=== PATIENT | female | born 1990 | race Caucasian/White ===

== ENCOUNTER 2017-03-06 13:51 | Emergency (ER) | payer OTHER ==
[2017-03-06] MEDS ORDERED: NS 0.9% 1000 ML* 1,000 ML IV ONE (14:13)
[2017-03-06 14:27] LABS: Hematocrit 32 % (35-47); Hemoglobin 9.6 g/dl (12.0-16.0); Mean Corpuscular HGB Conc 30 g/dl (31-36); Mean Corpuscular Hemoglobin 21 pg (27-31); Mean Corpuscular Volume 70 fL (80-97); Mean Platelet Volume 8 um3 (7.4-10.4); Red Cell Distribution Width 20 % (10.5-15); White Blood Count 7.5 10^3/ul (3.5-10.8)
[2017-03-06 14:30] LABS: Comments Flag Yes
[2017-03-06 14:31] LABS: Add Diff/Slide Review? Slide Review Added
[2017-03-06 14:44] LABS: ALT 8 U/L (7-52); AST 12 U/L (13-39); Albumin 4.4 g/dL (3.2-5.2); Alkaline Phosphatase 73 U/L (34-104); Amylase 73 U/L (29-103); Anion Gap 6 mmol/L (2-11); BUN/Creatinine Ratio 10.9 (8-20); Blood Urea Nitrogen 7 mg/dL (6-24); C Reactive Protein < 1.00 mg/L (< 5.00); CO2 Carbon Dioxide 28 mmol/L (22-32); Chloride 106 mmol/L (101-111); EGFR African American 146.6 (>60); Globulin 2.6 g/dL (2-4); Glucose 99 mg/dL (70-100); Lipase 108 U/L (11.0-82.0); Potassium 3.7 mmol/L (3.5-5.0); Sodium 140 mmol/L (133-145)
--- NOTE | 2017-03-06 15:06 | RAD ---
HISTORY: Abdominal pain COMPARISONS: None VIEWS: Frontal views of the abdomen. FINDINGS: BOWEL: There is a nonobstructive bowel gas pattern. CALCULI: There are no abnormal calculi. BONES AND SOFT TISSUES: There are no osseous abnormalities. OTHER FINDINGS: The lung bases are clear. There is no subphrenic gas. IMPRESSION: NONOBSTRUCTIVE BOWEL GAS PATTERN
[2017-03-06] MEDS ORDERED: Ondansetron INJ* 2 MG/ML VIAL IV ONE (15:28)
[2017-03-06] MEDS ORDERED: Ondansetron INJ* 2 MG/ML VIAL ONE (15:29)
[2017-03-06] MEDS ORDERED: Ketorolac INJ* 30 MG/ML 1 ML VIAL IV PUSH ONE (15:32)
[2017-03-06] MEDS ORDERED: Ketorolac INJ* 30 MG/ML 1 ML VIAL ONE (15:34)
[2017-03-06 16:59] LABS: Urine Bacteria Absent (Absent); Urine Bilirubin Negative (Negative); Urine Glucose Negative (Negative); Urine Nitrite Negative (Negative)
--- NOTE | 2017-03-06 18:15 | RAD ---
INDICATION: Right lower quadrant pain x1 week COMPARISON: None. TECHNIQUE: Real-time transabdominal and transvaginal ultrasound examination of the female pelvis including grayscale and Doppler color flow imaging. FINDINGS: Uterus: The uterus is normal in size and echogenicity measuring 6.9 x 4.9 x 5.8 cm. The endometrial stripe is smooth and uniform measuring 5 mm in thickness. Ovaries: The right and left ovary measure 3.9 x 1.8 x 2.5 cm and 3.9 x 2.7 x 2.0 cm, respectively. Normal arterial and venous waveforms are identified. Appearance is within normal limits for the patient's age. There is small amount of free fluid in the cul-de-sac. IMPRESSION: Normal pelvic ultrasound for the patient's age.
[2017-03-06] MEDS ORDERED: cefTRIAXone VIAL(*) 250 MG VIAL IM ONE (18:40)
[2017-03-06] MEDS ORDERED: DOXYcycline IV* 100 MG in NS 0.9% 250 ML* 250 ML IVPB ONE (18:40)
[2017-03-06] MEDS ORDERED: Lidocaine 1%* 5 ML VIAL ONE (18:58)
[2017-03-06] MEDS ORDERED: oxyCODONE/Acetamin 5/325 MG* TAB PO ONE (19:11)
[2017-03-06 20:45] VITALS: BP 94/68
--- NOTE | 2017-03-07 07:53 | ED ---
Steve Rowland Alfonso, scribed for Armando Powell MD on 03/06/17 at 1423 . Abdominal Pain/Female - HPI Summary HPI Summary: This patient is a 26 year old F presenting to [facility] with a chief complaint of RLQ abdominal and right flank pain since one week ago. The pain radiates to her back. The patient rates the pain 9/10 in severity. Symptoms aggravated by new IBS medications and alleviated by nothing. Patient reports dysuria, N/V/D, and vaginal discharge. She denies recent abx use. She denies recent travel. She denies recent sick contacts. She reports recent diagnoses of IBS and bilateral kidney stones. PSHx of cholecystectomy and gastric bypass (4 years ago in [place]). - History of Current Complaint Chief Complaint: EDAbdPain Stated Complaint: ABD PAIN Time Seen by Provider: 03/06/17 14:01 Hx Obtained From: Patient Hx Last Menstrual Period: now Onset/Duration: Sudden Onset, Lasting Weeks - 1, Still Present Timing: Constant Severity Initially: Severe Severity Currently: Severe Pain Intensity: 9 Pain Scale Used: 0-10 Numeric Location: Discrete At: RLQ, Flank - R Radiates: Yes Radiates to: Back Aggravating Factor(s): Other: - New medications (for IBS) Alleviating Factor(s): Nothing Associated Signs and Symptoms: Positive: Other: - Patient reports dysuria, N/V/D , and vaginal discharge. Allergies/Adverse Reactions: Allergies Allergy/AdvReac Type Severity Reaction Status Date / Time Morphine Allergy ITCHINESS Verified 02/12/15 14:27 Home Medications: Home Medications Acetaminophen TAB* [Tylenol TAB*] 650 mg PO Q4H PRN 03/06/17 [History Confirmed 03/06/17] Dicyclomine CAP* [Bentyl CAP*] 10 mg PO TID PRN 03/06/17 [History Confirmed 03/15] Omeprazole CAP* [Prilosec CAP* 20 MG] 40 mg PO DAILY 03/06/17 [History Confirmed 03/06/17] Ondansetron TAB* [Zofran 4 MG Tab*] 4 mg PO TID PRN 03/06/17 [History Confirmed 03/06/17] Sertraline* [Zoloft*] 25 mg PO DAILY 03/06/17 [History Confirmed 03/06/17] PMH/Surg Hx/FS Hx/Imm Hx Endocrine/Hematology History: Denies: Hx Diabetes, Hx Thyroid Disease Respiratory History: Reports: Hx Asthma - PRN INHALER FOR History: Reports: Hx Kidney Infection - HX OF - NONE RECENTLY-LAST 08/2013, Hx Kidney Stones - 08/2013 Sensory History: Denies: Hx Contacts or Glasses, Hx Hearing Aid Opthamlomology History: Denies: Hx Contacts or Glasses Psychiatric History: Reports: Hx Anxiety - HX OF IN THE PAST- NO MEDICATION FOR AT THIS TIME - Surgical History Surgery Procedure, Year, and Place: gastric bypass 01/20/2013, right ganglion cyst 11/2014. GALLBLADDER REMOVED AT AGE 18. INFECTION IN FOOT -HAD DRAIN FOR- AT AGE 10 OR 11. TONSILLECTOMY Hx Anesthesia Reactions: No Infectious Disease History: No Infectious Disease History: Denies: Hx Clostridium Difficile, Hx Hepatitis, Hx Human Immunodeficiency Virus (HIV), Hx of Known/Suspected MRSA, Hx Shingles, Hx Tuberculosis, Hx Known/ Suspected VRE, Hx Known/Suspected VRSA, History Other Infectious Disease, Traveled Outside the [place] in Last 30 Days - Family History Known Family History: Positive: Cardiac Disease, Other - Renal Calculi - Social History Alcohol Use: None Substance Use Type: Reports: None Smoking Status (MU): Never Smoked Tobacco Review of Systems Positive: Abdominal Pain - RLQ and right flank, Vomiting, Diarrhea, Nausea Positive: dysuria, other - Positive vaginal discharge All Other Systems Reviewed And Are Negative: Yes Physical Exam - Summary Physical Exam Summary: VITAL SIGNS: Reviewed. GENERAL: Patient is a well-developed and nourished female who is lying comfortable in the stretcher. Patient is not in any acute respiratory distress. HEAD AND FACE: Normocephalic and atraumatic. EYES: PERRLA, EOMI x 2, No injected conjunctiva. EARS: Hearing grossly intact. Ear canals and tympanic membranes are WNL. MOUTH: Oropharynx within normal limits. NECK: Supple, trachea is midline, no adenopathy, no JVD. CHEST: Symmetric, no tenderness at palpation LUNGS: Clear to auscultation bilaterally. No wheezing or crackles. CVS: RRR, S1 and S2 present, no murmurs or gallops appreciated. ABDOMEN: Soft, non-tender. No signs of distention. Positive bowel sounds. No rebound no guarding, and no masses palpated. No abdominal bruit or pulsations. EXTREMITIES: FROM in all major joints, no edema, no cyanosis or clubbing. NEURO: Alert and oriented x 3. No acute neurological deficits. Speech is normal. SKIN: Dry and warm Triage Information Reviewed: Yes Vital Signs On Initial Exam: Initial Vitals Temp Pulse Resp BP Pulse Ox 97.7 F 83 18 113/62 100 03/06/17 13:53 03/06/17 13:53 03/06/17 13:53 03/06/17 13:53 03/06/17 13:53 Vital Signs Reviewed: Yes - Brittney Coma Scale Coma Scale Total: 15 Diagnostics - Vital Signs Vital Signs Temp Pulse Resp BP Pulse Ox 03/06/17 14:04 98.2 F 92 20 127/77 100 03/06/17 13:53 97.7 F 83 18 113/62 100 - Laboratory Lab Results: Lab Results 03/06/17 03/06/17 03/06/17 Range/Units 14:16 14:16 14:16 WBC 7.5 (3.5-10.8) 10^3/ul RBC 4.60 (4.0-5.4) 10^6/ul Hgb 9.6 L (12.0-16.0) g/dl Hct 32 L (35-47) % MCV 70 L (80-97) fL MCH 21 L (27-31) pg MCHC 30 L (31-36) g/dl RDW 20 H (10.5-15) % Plt Count 436 (150-450) 10^3/ul MPV 8 (7.4-10.4) um3 Neut % (Auto) 70.7 (38-83) % Lymph % (Auto) 20.1 L (25-47) % Bann[place] % (Auto) 8.5 (1-9) % Eos % (Auto) 0.1 (0-6) % Baso % (Auto) 0.6 (0-2) % Absolute Neuts (auto) 5.3 (1.5-7.7) 10^3/ul Absolute Lymphs (auto) 1.5 (1.0-4.8) 10^3/ul Absolute Monos (auto) 0.6 (0-0.8) 10^3/ul Absolute Eos (auto) 0 (0-0.6) 10^3/ul Absolute Basos (auto) 0 (0-0.2) 10^3/ul Absolute Nucleated RBC 0.01 10^3/ul Nucleated RBC % 0.1 Sodium 140 (133-145) mmol/L Potassium 3.7 (3.5-5.0) mmol/L Chloride 106 (101-111) mmol/L Carbon Dioxide 28 (22-32) mmol/L Anion Gap 6 (2-11) mmol/L BUN 7 (6-24) mg/dL Creatinine 0.64 (0.51-0.95) mg/dL Est GFR ( Amer) 146.6 (>60) Est GFR (Non-Af Amer) 114.0 (>60) BUN/Creatinine Ratio 10.9 (8-20) Glucose 99 (70-100) mg/dL Lactic Acid 0.7 (0.5-2.0) mmol/L Calcium 9.0 (8.6-10.3) mg/dL Total Bilirubin 0.30 (0.2-1.0) mg/dL AST 12 L (13-39) U/L ALT 8 (7-52) U/L Alkaline Phosphatase 73 (34-104) U/L C-Reactive Protein < 1.00 (< 5.00) mg/L Total Protein 7.0 (6.4-8.9) g/dL Albumin 4.4 (3.2-5.2) g/dL Globulin 2.6 (2-4) g/dL Albumin/Globulin Ratio 1.7 (1-3) Amylase 73 (29-103) U/L Lipase 108 H (11.0-82.0) U/L Beta HCG, Quant < 0.60 mIU/mL Urine Color Urine Appearance Urine pH (5-9) Ur Specific Slick (1.010-1.030) Urine Protein (Negative) Urine Ketones (Negative) Urine Blood (Negative) Urine Nitrate (Negative) Urine Bilirubin (Negative) Urine Urobilinogen (Negative) Ur Leukocyte Esterase (Negative) Urine WBC (Auto) (Absent) Urine RBC (Auto) (Absent) Ur Squamous Epith Cells (Absent) Urine Bacteria (Absent) Urine Glucose (Negative) 03/06/17 Range/Units 16:43 WBC (3.5-10.8) 10^3/ul RBC (4.0-5.4) 10^6/ul Hgb (12.0-16.0) g/dl Hct (35-47) % MCV (80-97) fL MCH (27-31) pg MCHC (31-36) g/dl RDW (10.5-15) % Plt Count (150-450) 10^3/ul MPV (7.4-10.4) um3 Neut % (Auto) (38-83) % Lymph % (Auto) (25-47) % Bannock % (Auto) (1-9) % Eos % (Auto) (0-6) % Baso % (Auto) (0-2) % Absolute Neuts (auto) (1.5-7.7) 10^3/ul Absolute Lymphs (auto) (1.0-4.8) 10^3/ul Absolute Monos (auto) (0-0.8) 10^3/ul Absolute Eos (auto) (0-0.6) 10^3/ul Absolute Basos (auto) (0-0.2) 10^3/ul Absolute Nucleated RBC 10^3/ul Nucleated RBC % Sodium (133-145) mmol/L Potassium (3.5-5.0) mmol/L Chloride (101-111) mmol/L Carbon Dioxide (22-32) mmol/L Anion Gap (2-11) mmol/L BUN (6-24) mg/dL Creatinine (0.51-0.95) mg/dL Est GFR ( Amer) (>60) Est GFR (Non-Af Amer) (>60) BUN/Creatinine Ratio (8-20) Glucose (70-100) mg/dL Lactic Acid (0.5-2.0) mmol/L Calcium (8.6-10.3) mg/dL Total Bilirubin (0.2-1.0) mg/dL AST (13-39) U/L ALT (7-52) U/L Alkaline Phosphatase (34-104) U/L C-Reactive Protein (< 5.00) mg/L Total Protein (6.4-8.9) g/dL Albumin (3.2-5.2) g/dL Globulin (2-4) g/dL Albumin/Globulin Ratio (1-3) Amylase (29-103) U/L Lipase (11.0-82.0) U/L Beta HCG, Quant mIU/mL Urine Color Straw Urine Appearance Clear Urine pH 6.0 (5-9) Ur Specific Slick 1.012 (1.010-1.030) Urine Protein Negative (Negative) Urine Ketones Trace H (Negative) Urine Blood Negative (Negative) Urine Nitrate Negative (Negative) Urine Bilirubin Negative (Negative) Urine Urobilinogen Negative (Negative) Ur Leukocyte Esterase Trace H (Negative) Urine WBC (Auto) Trace(0-5/hpf) (Absent) Urine RBC (Auto) Trace(0-2/hpf) (Absent) Ur Squamous Epith Cells Present H (Absent) Urine Bacteria Absent (Absent) Urine Glucose Negative (Negative) Result Diagrams: 03/06/17 14:16 03/06/17 14:16 Lab Statement: Any lab studies that have been ordered have been reviewed, and results considered in the medical decision making process. - Radiology Abdomen X-Ray Radiology Interpretation Completed By: Radiologist - NONOBSTRUCTIVE BOWEL GAS PATTERN - Additional Comments Diagnostic Additional Comments: Transvaginal US reveals, per radiologist, Normal pelvic ultrasound for the patient's age. Re-Evaluation - Re-Evaluation First Eval Re-Evaluation Time: 16:26 Change: Improved Comment: She reports feeling improved but still has some abd pain. Abdominal Pain Fem Course/Dx - Course Course Of Treatment: This patient is a 26 year old F presenting to [facility] with a chief complaint of RLQ abdominal and right flank pain since one week ago. The pain radiates to her back. The patient rates the pain 9/10 in severity. Symptoms aggravated by new IBS medications and alleviated by nothing. Patient reports dysuria, N/V/D, and vaginal discharge. She denies recent abx use. She denies recent travel. She denies recent sick contacts. She reports recent diagnoses of IBS and bilateral kidney stones. PSHx of cholecystectomy and gastric bypass (4 years ago in [place]). In the ED course an IV access was obtained. Patient was placed in a cardiac exercise physiologist. Patient was started with IV fluids. She was given Toradol for pain and Zofran for nausea. Labs within normal limits except for chronic anemia, lipase of 108. UA negative. Abdominal X-ray IMPRESSION: NONOBSTRUCTIVE BOWEL GAS PATTERN . I did not order an abdominal and pelvic CT since she just had a CT in [place] on 02/26/17. Impression: Bilateral nephrolithiasis left more prominent than right. No hydronephrosis or obstructing stone. She was given an oxycodone for pain. Pelvic U/S rto r/o ovarian pathology IMPRESSION: Normal pelvic ultrasound for the patient's age. At this time I performed a pelvic exam. 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 External genitalia: within normal limits. No rashes, lesions or ecchymosis. Speculum exam: vaginal barriga with no lesions, masses, or rashes. Positive white yellow discharge. Positive CMTs. No adnexal masses. All cultures were collected and send to the lab. Patient reports that she is sexually active with more than one person and she uses no protection. She was given Rocephin and Doxycycline. She was recommended to f/ u with PCP for culture results. She understands and agrees. I discussed all the findings and test results with the patient. Patient was instructed to return to the emergency room immediately if any of the symptoms return or worsens. They were explained the possibility of an early abdominal pathology which was not detected at this time despite the physical exam and testing. They understand and agree. Abdominal exam before discharge: Soft, NT. No signs of distention. BS present. No rebound no guarding, and no masses palpated. Patient is alert and oriented and hemodynamically stable. Patient is to follow up with primary care physician in the next 2 to 3 days. Patient agree and understands. - Diagnoses Differential Diagnosis: Positive: Constipation, Irritable Bowel Syndrome, Ovarian Cyst, Pelvic Inflammatory Disease, Urinary Tract Infection Provider Diagnoses: Abdominal pain, STI (sexually transmitted infection) Discharge - Discharge Plan Condition: Stable Disposition: HOME Prescriptions: DOXYcycline CAP(*) [DOXYcycline 100MG CAP(*)] 100 mg PO BID #10 cap Naproxen TAB* [Naprosyn 250 mg TAB*] 500 mg PO Q8H PRN #20 tab PRN Reason: Pain Patient Education Materials: Sexually Transmitted Diseases (ED) Referrals: Edgar VALENCIA,Cristian Huynh [Primary Care Provider] - 3 Days The documentation as recorded by the Steve ann Alfonso accurately reflects the service I personally performed and the decisions made by , Armando Powell MD.
--- NOTE | 2017-03-08 09:43 | PN ---
Progress Note - Progress Note Date of Service: 03/08/17 Note: Patient vaginal culture came back positive for gardnerella and samina. talked with patient and still having symptoms so added fluconazole 150mg once and flagyl 500mg bid x7 days
== END 2017-03-06 20:44 | disposition home or self-care (01) ==
LOC: ED 13:51
DX: R10.31 Right lower quadrant pain (principal); Z11.3 Encounter for screening for infections with a predominantly sexual mode of transmission; R11.2 Nausea with vomiting, unspecified; R19.7 Diarrhea, unspecified; R30.0 Dysuria
CPT/HCPCS: 36415; 74020; 76830; 80053; 81003; 81015; 82150; 83605; 83690; 84702; 85025; 86140; 87086; 87480; 87491; 87510; 87591; 87661; 96374; 96375; 99285; A9270-GY; J0696; J1885; J2405

== ENCOUNTER 2017-03-17 15:01 | Emergency (ER) | payer OTHER ==
--- NOTE | 2017-03-17 17:36 | RAD ---
HISTORY: Right foot injury COMPARISONS: None available at the time of dictation VIEWS: 3, Frontal, lateral, and oblique views of the right foot FINDINGS: BONE DENSITY: Normal. BONES: There is no displaced fracture. JOINTS: There is no arthropathy. ALIGNMENT: There is no dislocation. SOFT TISSUES: Unremarkable. OTHER FINDINGS: None. IMPRESSION: NO ACUTE OSSEOUS INJURY. IF SYMPTOMS PERSIST, RECOMMEND REPEAT IMAGING.
[2017-03-17 17:43] VITALS: BP 103/67
[2017-03-17] MEDS ORDERED: HYDROcodone/ACETAMIN 5-325 MG* 1 TAB PO ONE (18:04)
--- NOTE | 2017-03-17 18:28 | UC ---
Lower Extremity/Ankle HPI - HPI Summary HPI Summary: TWO DAYS AGO SEEN BY [facility], PATIENT REPORTS THAT SHE WAS DIAGNOSED WITH A FRACTURE OF THE RIGHT FOOT. GIVEN [facility] REFERRAL. TODAY DROPPED VACCUUM HUNTING AND FISHING GUIDE ON FOOT. PAIN CONTINUES. - History of Current Complaint Chief Complaint: UCLowerExtremity Stated Complaint: RIGHT FOOT INJURY Time Seen by Provider: 03/17/17 15:32 Hx Obtained From: Patient Hx Last Menstrual Period: 03/03/17 Onset/Duration: Sudden Onset, Lasting Days, Still Present Severity Initially: Severe Severity Currently: Severe Pain Intensity: 9 Pain Scale Used: 0-10 Numeric Aggravating Factor(s): Standing, Ambulation Alleviating Factor(s): Rest, Elevation Able to Bear Weight: No - Risk Factors Gout Risk Factors: Negative DVT Risk Factors: Negative Septic Arthritis Risk Factor: Negative - Allergies/Home Medications Allergies/Adverse Reactions: Allergies Allergy/AdvReac Type Severity Reaction Status Date / Time Ibuprofen Allergy See Comment Verified 03/17/17 15:27 Morphine Allergy ITCHINESS Verified 03/17/17 15:25 PMH/Surg Hx/FS Hx/Imm Hx Previously Healthy: Yes - Surgical History Surgical History: Yes Surgery Procedure, Year, and Place: gastric bypass 01/20/2013, right ganglion cyst 11/2014. GALLBLADDER REMOVED AT AGE 18. INFECTION IN FOOT -HAD DRAIN FOR- AT AGE 10 OR 11. TONSILLECTOMY - Family History Known Family History: Positive: Cardiac Disease, Other - Renal Calculi - Social History Occupation: Unemployed Lives: With Family Alcohol Use: None Substance Use Type: None Smoking Status (MU): Never Smoked Tobacco - Immunization History Most Recent Influenza Vaccination: 2015 Most Recent Tetanus Shot: 2011 Most Recent Pneumonia Vaccination: NONE Review of Systems Constitutional: Negative Skin: Negative Eyes: Negative ENT: Negative Respiratory: Negative Cardiovascular: Negative Gastrointestinal: Negative Genitourinary: Negative Motor: Negative Neurovascular: Negative Musculoskeletal: Arthralgia, Myalgia Neurological: Negative Psychological: Negative All Other Systems Reviewed And Are Negative: Yes Physical Exam Triage Information Reviewed: Yes Appearance: Well-Appearing, No Pain Distress, Well-Nourished Vital Signs: Initial Vital Signs Temp 97.5 F 03/17/17 15:29 Pulse 90 03/17/17 15:29 Resp 18 03/17/17 15:29 BP 91/65 03/17/17 15:29 Pulse Ox 100 03/17/17 15:29 Vital Signs Reviewed: Yes Eye Exam: Normal ENT Exam: Normal ENT: Positive: Normal ENT inspection, TMs normal Dental Exam: Normal Neck exam: Normal Neck: Positive: Supple, Nontender, No Lymphadenopathy Respiratory Exam: Normal Respiratory: Positive: Chest non-tender, Lungs clear, Normal breath sounds, No respiratory distress, No accessory muscle use Cardiovascular Exam: Normal Cardiovascular: Positive: RRR, No Murmur, Pulses Normal, Brisk Capillary Refill Abdominal Exam: Normal Musculoskeletal: Positive: No Edema, Strength Limited @, ROM Limited @, Other: Neurological Exam: Normal Psychological Exam: Normal Psychological: Positive: Normal Response To Family Skin Exam: Normal Lower Extremity Course/Dx - Course Course Of Treatment: NO FRACTURE WAS NOTED ON XRAY. - Differential Dx/Diagnosis Differential Diagnosis/HQI/PQRI: Fracture (Closed), Sprain, Strain Provider Diagnoses: RIGHT FOOT SPRAIN; CONTUSION Discharge - Discharge Plan Condition: Stable Disposition: HOME Prescriptions: HYDROcodone/ACETAMIN 5-325 MG* [[place] 5-325 TAB*] 1 tab PO Q8H PRN #6 tab MDD THREE TABS PRN Reason: Pain Patient Education Materials: Foot Contusion (ED), Foot Sprain (ED) Referrals: Akshat Salgado MD [Medical Doctor] - Gia Reyes NP [Primary Care Provider] -
== END 2017-03-17 17:55 | disposition home or self-care (01) ==
LOC: UCCORT 15:01
DX: S93.601A Unspecified sprain of right foot, initial encounter (principal); S90.31XA Contusion of right foot, initial encounter; W20.8XXA Other cause of strike by thrown, projected or falling object, initial encounter; Y93.9 Activity, unspecified; Y92.9 Unspecified place or not applicable; Z98.84 Bariatric surgery status; Z90.49 Acquired absence of other specified parts of digestive tract; Z88.6 Allergy status to analgesic agent; Z88.5 Allergy status to narcotic agent
CPT/HCPCS: 99212; G0463

== ENCOUNTER 2017-10-28 13:24 | Emergency (ER) | payer OTHER ==
[2017-10-28] MEDS ORDERED: NS 0.9% 1000 ML* 1,000 ML IV ONE (13:55)
[2017-10-28] MEDS ORDERED: Ketorolac INJ* 30 MG/ML 1 ML VIAL IV PUSH ONE (13:56)
--- NOTE | 2017-10-28 14:29 | RAD ---
CLINICAL HISTORY: Flank pain COMPARISON: None TECHNIQUE: Multiple contiguous axial CT scans were obtained of the abdomen and pelvis, without intravenous contrast enhancement. Coronal and sagittal multiplanar reformations are submitted for review. Oral contrast was not administered. FINDINGS: The study is limited by the lack of intravenous contrast. This limits evaluation of the solid organs and vasculature. LUNG BASES: The lung bases are clear. LIVER: The liver is normal in shape, size, contour, and attenuation. BILE DUCTS: There is no intrahepatic or extrahepatic biliary dilatation. GALLBLADDER: The gallbladder is not visualized. Surgical clips are noted in the gallbladder fossa. PANCREAS: The pancreas is normal, without mass or ductal dilatation. SPLEEN: Normal in size and appearance. UPPER GI TRACT: Evaluation of the gastrointestinal tract is limited by incomplete gastric distention. There is post surgical change to the upper GI tract. SMALL BOWEL AND MESENTERY: The small bowel is normal in contour, course, and caliber. There is no obstruction or dilatation. COLON: The colon is normal in contour, course, caliber. There is no pericolonic inflammatory change. There is a tubular, vermiform, hollow viscus that is blind ending, and originates from the cecum, consistent with a normal appendix. There is no periappendiceal inflammatory change. This is best seen on coronal images 36 through 29. ADRENALS: Normal bilaterally. KIDNEYS: The kidneys are normal in shape, size, contour, and axis. There is no hydronephrosis or nephrolithiasis. BLADDER: The bladder is smooth in contour. PELVIC ORGANS: The uterus and adnexa are grossly normal for technique. AORTA: The aorta is normal. IVC: Unremarkable LYMPH NODES: There is no lymphadenopathy by size criteria. ABDOMINAL WALL: There is no evidence for abdominal wall hernia. BONES AND SOFT TISSUES: There are mild diffuse degenerative changes. OTHER: None IMPRESSION: NO HYDRONEPHROSIS OR NEPHROLITHIASIS.
[2017-10-28 14:41] LABS: Urine Appearance Clear; Urine Blood Negative (Negative); Urine Color Colorless; Urine Ketones Negative (Negative); Urine Protein Negative (Negative); Urine Specific Gravity 1.003 (1.010-1.030); Urine Urobilinogen Negative (Negative)
[2017-10-28 14:45] VITALS: BP 119/72
[2017-10-28 14:58] LABS: EGFR Non-African American 105.4 (>60)
[2017-10-28 15:04] LABS: ABS Basophils 0 10^3/ul (0-0.2); ABS Eosinophils 0 10^3/ul (0-0.6); ABS Lymphocytes 1.6 10^3/ul (1.0-4.8); ABS Monocytes 0.6 10^3/ul (0-0.8); ABS Neutrophils 3.1 10^3/ul (1.5-7.7); ABS Nucleated RBC 0 10^3/ul; Eosinophil % 0.4 % (0-6); Hematocrit 25 % (35-47); Hemoglobin 7.3 g/dl (12.0-16.0); Lymphocyte % 29.1 % (25-47); Mean Corpuscular HGB Conc 29 g/dl (31-36); Mean Corpuscular Hemoglobin 19 pg (27-31); Mean Corpuscular Volume 66 fL (80-97); Mean Platelet Volume 7.7 um3 (7.4-10.4); Nucleated Red Blood Cells % 0; Platelet Count 302 10^3/ul (150-450); Red Blood Count 3.79 10^6/ul (4.0-5.4); Red Cell Distribution Width 20 % (10.5-15); White Blood Count 5.4 10^3/ul (3.5-10.8)
--- NOTE | 2017-10-28 15:13 | RAD ---
HISTORY: Left lower extremity pain COMPARISONS: None relevant TECHNIQUE: Multiple transverse and longitudinal ultrasound images were obtained of the left lower extremity from the level of the common femoral vein inferiorly through to the infrapopliteal veins using grayscale, color Doppler, and spectral Doppler imaging with and without compression and with augmentation. Comparison images were obtained of the contralateral common femoral vein. FINDINGS: VEINS: The venous system of the left lower extremity is compressible throughout its course, with normal flow on color Doppler imaging and normal response to augmentation on spectral Doppler imaging. SOFT TISSUES: Unremarkable. OTHER FINDINGS: None. IMPRESSION: NO LEFT LOWER EXTREMITY DEEP VEIN THROMBOSIS
[2017-10-28 16:00] LABS: Tear Drop Cells 1+
--- NOTE | 2017-10-28 18:37 | ED ---
Emma Rowland Gabriel, scribed for Armando Powell MD on 10/28/17 at 1406 . Complex/Multi-Sys Presentation - HPI Summary HPI Summary: This patient is a 27 year old F presenting to [facility] accompanied by her partner with a chief complaint of right sided CP that began yesterday. The patient rates the pain 8/10 in severity. Patient reports right sided flank pain, left foot pain, left foot edema, left ankle/ lower calf pain, dizziness, dysuria, and hematuria. Patient denies trauma. In August the patient had a D&C, is currently not on BC, but is a smoker. Pt arrives ambulating with a crutch and states she currently has kidney stones. Stent placed 5 months ago to removed kidney stone. - History Of Current Complaint Chief Complaint: EDChestPainROMI Time Seen by Provider: 10/28/17 13:34 Hx Obtained From: Patient Onset/Duration: Lasting Days, Still Present Timing: Constant Severity Currently: Mild Severity Initially: Mild Associated Signs And Symptoms: Positive: Other - right sided flank pain, left foot pain, left foot edema, left ankle/ lower calf pain, cp, dizziness, dysuria , and hematuria - Allergies/Home Medications Allergies/Adverse Reactions: Allergies Allergy/AdvReac Type Severity Reaction Status Date / Time ibuprofen Allergy See Comment Verified 10/28/17 13:28 morphine Allergy Itching Verified 10/28/17 13:28 PMH/Surg Hx/FS Hx/Imm Hx Endocrine/Hematology History: Denies: Hx Diabetes, Hx Thyroid Disease Respiratory History: Reports: Hx Asthma - PRN INHALER FOR History: Reports: Hx Kidney Infection - HX OF - NONE RECENTLY-LAST 08/2013, Hx Kidney Stones - 08/2013 Sensory History: Denies: Hx Contacts or Glasses, Hx Hearing Aid Opthamlomology History: Denies: Hx Contacts or Glasses Psychiatric History: Reports: Hx Anxiety - HX OF IN THE PAST- NO MEDICATION FOR AT THIS TIME - Surgical History Surgery Procedure, Year, and Place: gastric bypass 01/20/2013, right ganglion cyst 11/2014. GALLBLADDER REMOVED AT AGE 18. INFECTION IN FOOT -HAD DRAIN FOR- AT AGE 10 OR 11. TONSILLECTOMY Hx Anesthesia Reactions: No Infectious Disease History: No Infectious Disease History: Denies: Hx Clostridium Difficile, Hx Hepatitis, Hx Human Immunodeficiency Virus (HIV), Hx of Known/Suspected MRSA, Hx Shingles, Hx Tuberculosis, Hx Known/ Suspected VRE, Hx Known/Suspected VRSA, History Other Infectious Disease, Traveled Outside the [place] in Last 30 Days - Family History Known Family History: Positive: Cardiac Disease, Other - Renal Calculi - Social History Lives: With Family Alcohol Use: None Substance Use Type: Reports: None Smoking Status (MU): Never Smoked Tobacco Review of Systems Constitutional: Negative - trauma Positive: Chest Pain Positive: dysuria, flank pain - right sided flank pain, hematuria Positive: Edema - left , Other - left foot pain and left ankle/ lower calf pain Neurological: Other - dizziness All Other Systems Reviewed And Are Negative: Yes Physical Exam - Summary Physical Exam Summary: VITAL SIGNS: Reviewed. GENERAL: Patient is an obese female who is lying comfortable in the stretcher. Patient is not in any acute respiratory distress. HEAD AND FACE: No signs of trauma. No ecchymosis, hematomas or skull depressions. No sinus tenderness. EYES: PERRLA, EOMI x 2, No injected conjunctiva, no nystagmus. EARS: Hearing grossly intact. Ear canals and tympanic membranes are within normal limits. MOUTH: Oropharynx within normal limits. NECK: Supple, trachea is midline, no adenopathy, no JVD, no carotid bruit, no c- spine tenderness, neck with full ROM. CHEST: Symmetric, no tenderness at palpation LUNGS: Clear to auscultation bilaterally. No wheezing or crackles. CVS: Regular rate and rhythm, S1 and S2 present, no murmurs or gallops appreciated. ABDOMEN: Soft, non-tender. No signs of distention. No rebound no guarding, and no masses palpated. Bowel sounds are normal. Back: Right CVA tenderness EXTREMITIES: FROM in all major joints, no edema, no cyanosis or clubbing. Good pedal pulses in bilateral LE NEURO: Alert and oriented x 3. No acute neurological deficits. Speech is normal and follows commands. SKIN: Dry and warm Triage Information Reviewed: Yes Vital Signs On Initial Exam: Initial Vitals Temp Pulse Resp BP Pulse Ox 98 F 56 20 133/110 100 10/28/17 13:29 10/28/17 13:29 10/28/17 13:29 10/28/17 13:29 10/28/17 13:29 Vital Signs Reviewed: Yes Diagnostics - Vital Signs Vital Signs Temp Pulse Resp BP Pulse Ox 10/28/17 13:29 98 F 56 20 133/110 100 - Laboratory Lab Results: Lab Results 10/28/17 10/28/17 10/28/17 Range/Units 14:30 14:30 14:30 WBC 5.4 (3.5-10.8) 10^3/ul RBC 3.79 L (4.0-5.4) 10^6/ul Hgb 7.3 L (12.0-16.0) g/dl Hct 25 L (35-47) % MCV 66 L (80-97) fL MCH 19 L (27-31) pg MCHC 29 L (31-36) g/dl RDW 20 H (10.5-15) % Plt Count 302 (150-450) 10^3/ul MPV 7.7 (7.4-10.4) um3 Neut % (Auto) 58.0 (38-83) % Lymph % (Auto) 29.1 (25-47) % Mcdowell % (Auto) 11.7 H (0-7) % Eos % (Auto) 0.4 (0-6) % Baso % (Auto) 0.8 (0-2) % Absolute Neuts (auto) 3.1 (1.5-7.7) 10^3/ul Absolute Lymphs (auto) 1.6 (1.0-4.8) 10^3/ul Absolute Monos (auto) 0.6 (0-0.8) 10^3/ul Absolute Eos (auto) 0 (0-0.6) 10^3/ul Absolute Basos (auto) 0 (0-0.2) 10^3/ul Absolute Nucleated RBC 0 10^3/ul Nucleated RBC % 0 Hypochromasia 2+ Microcytosis 2+ Tear Drop Cells 1+ Elliptocytes 1+ Sodium 139 (139-145) mmol/L Potassium 3.9 (3.5-5.0) mmol/L Chloride 107 (101-111) mmol/L Carbon Dioxide 25 (22-32) mmol/L Anion Gap 7 (2-11) mmol/L BUN 7 (6-24) mg/dL Creatinine 0.68 (0.51-0.95) mg/dL Est GFR ( Amer) 135.6 (>60) Est GFR (Non-Af Amer) 105.4 (>60) BUN/Creatinine Ratio 10.3 (8-20) Glucose 87 (70-100) mg/dL Calcium 8.5 L (8.6-10.3) mg/dL Total Bilirubin 0.30 (0.2-1.0) mg/dL AST 11 L (13-39) U/L ALT 6 L (7-52) U/L Alkaline Phosphatase 53 (34-104) U/L Troponin I 0.00 (<0.04) ng/mL C-Reactive Protein 2.88 (< 5.00) mg/L Total Protein 6.1 L (6.4-8.9) g/dL Albumin 3.8 (3.2-5.2) g/dL Globulin 2.3 (2-4) g/dL Albumin/Globulin Ratio 1.7 (1-3) Lipase 28 (11.0-82.0) U/L Urine Color Colorless Urine Appearance Clear Urine pH 6.0 (5-9) Ur Specific Mobile 1.003 L (1.010-1.030) Urine Protein Negative (Negative) Urine Ketones Negative (Negative) Urine Blood Negative (Negative) Urine Nitrate Negative (Negative) Urine Bilirubin Negative (Negative) Urine Urobilinogen Negative (Negative) Ur Leukocyte Esterase Negative (Negative) Urine Glucose Negative (Negative) Result Diagrams: 10/28/17 14:30 10/28/17 14:30 Lab Statement: Any lab studies that have been ordered have been reviewed, and results considered in the medical decision making process. - CT CT ABD/Pelvis CT Interpretation Completed By: Radiologist - NO HYDRONEPHROSIS OR NEPHROLITHIASIS. ED physician has reviewed this radiology report. - Ultrasound No standard instances Ultrasound Interpretation Completed By: Radiologist - Venous Doppler study, NO LEFT LOWER EXTREMITY DEEP VEIN THROMBOSIS ED physician has reviewed this radiology report. - EKG 1346 Cardiac Rate: NL EKG Rhythm: Sinus Rhythm - at 86 BPM EKG Interpretation: No ST elevations Re-Evaluation - Re-Evaluation First Eval Re-Evaluation Time: 15:30 Change: Unchanged Comment: I discussed test results and discharge with patient. Complex Multi-Symp Course/Dx Assessment/Plan: This patient is a 27 year old F presenting to [facility] accompanied by her partner with a chief complaint of right sided CP that began yesterday. The patient rates the pain 8/10 in severity. Patient reports right sided flank pain, left foot pain, left foot edema, left ankle/ lower calf pain, dizziness, dysuria, and hematuria. Patient denies trauma. In August the patient had a D&C, is currently not on BC, but is a smoker. Pt arrives ambulating with a crutch and states she currently has kidney stones. Stent placed 5 months ago to removed kidney stone. An EKG reveals NSR [address] ABD/pelvis reveals, per radiologist, NO HYDRONEPHROSIS OR NEPHROLITHIASIS. ED physician has reviewed this radiology report. Venous Doppler study, NO LEFT LOWER EXTREMITY DEEP VEIN THROMBOSIS. Test results with no significant abnormalities. UA was negative for UTI. In the ED course the patient was given toradol and an IV fluid, the patient is feeling better. The pt is hemodynamically stable, alert and oriented x3. Diagnoses of flank pain and leg pain. Patient will be discharged with prescription for Oxycodone and follow up from PCP. The patient is agreeable with this plan. - Diagnoses Provider Diagnoses: Leg pain, Flank pain Discharge - Sign-Out/Discharge Documenting (check all that apply): Discharge - Discharge Plan Condition: Stable Disposition: HOME Prescriptions: Oxycodone HCl 5 mg PO Q8H #6 tablet MDD 3 Patient Education Materials: Flank Pain (ED), Leg Pain (ED) Referrals: Gia Reyes NP [Nurse Practitioner] - 3 Days Additional Instructions: RETURN TO THE EMERGENCY DEPARTMENT FOR CHANGING OR WORSENING SYMPTOMS. - Billing Disposition and Condition Condition: STABLE Disposition: HOME The documentation as recorded by the Emma ann Gabriel accurately reflects the service I personally performed and the decisions made by , Armando Powell MD.
== END 2017-10-28 15:39 | disposition home or self-care (01) ==
LOC: ED 13:24
DX: R07.9 Chest pain, unspecified (principal); M79.605 Pain in left leg
CPT/HCPCS: 36415; 74176; 80053; 81003; 83690; 84484; 85025; 86140; 93005; 96374; 99282; J1885

== ENCOUNTER 2017-11-03 09:59 | Emergency (ER) | payer OTHER ==
--- OUTSIDE RECORDS SUMMARY | 2017-11-03 10:11 | XMS REPORT ---
:1990 External Reference #:[id number] Author Organization [employer] Address [address] [address] Phone [phone] Care Team Providers Name Role Phone Cristian Hernández NP Primary Care Physician Unavailable Payers Type Date Identification Numbers Payment Provider Subscriber Commercial Effective: Policy Number: Derrell Pelaez 2012 [id number] Group Name: [id number] [address] PayID: [id number] [place] [address] Problems Description No Information Family History Date Family Member(s) Problem(s) Comments General Diabetes General Arthritis General Cancer General ID General Stroke Social History Type Date Description Comments Marital Status Single Lives With Daughter 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 Use Former Cigarette Smoker 1/2 Pack Daily ETOH Use Denies alcohol use Smoking Light tobacco smoker (10 or fewer cigarettes/day) Recreational Drug Use Denies Drug Use Daily Caffeine Consumes on average 4 sodas per day Exercise Type/Frequency Exercises sporadically Allergies, Adverse Reactions, Alerts Date Description Reaction Status Severity Comments 11/02/2017 Tramadol active 11/02/2017 Codeine active 11/02/2017 Ibuprofen active 11/04/2014 NKDA inactive Medications Medication Date Status Form Strength Qnty SIG Indications Ordering Provider Cyclobenzaprine 11/02/ Active Tablets 10mg 30tab 1 by S80.02xA Akshat M HCL 2018 s mouth MD Naomi every 8 hours as needed spasm Ferrous Sulfate 00/00/ Active Tablets DR 325(65Fe) 1 tab by Edgar, 0000 mg mouth Cristian daily ERIK Keller Pain & Fever / Active Tablets 325mg as Unknown 0000 needed Ondansetron HCL / Active Tablets 4mg take 1 Unknown 0000 tablet every 8 hours if needed for nausea Omeprazole / Active Capsules 40mg Take One Unknown 0000 DR Capsule By Mouth Every 12 Hours For 7 Days Ultracet 12/16/ Hx Tablets 37.5-325mg 30tab 1 - 2 by 727.41 Nathalia Burrell, 02/24/ q4-6hr M.D. 2014 as needed pain Ibuprofen / Hx Tablets 800mg Scarseth, 0000 - Cristian 10/30/ Krishna, JAVA J[employer]EE APPLICATION DEVELOPER 2017 Hydrocodone-Aceta / Hx Tablets 5-325mg Scarseth, minophen 0000 - Cristian 10/31/ Krishna, [employer] APPLICATION DEVELOPER 2017 Oxycodone HCL / Hx Tablets 5mg take 1 Unknown 0000 - tablet 10/31/ by mouth 2017 every 8 hours Vital Signs Date Vital Result Comment 11/02/2017 Height 63 inches 5'3" Weight 167.00 lb Heart Rate 90 /min BP Systolic Sitting 124 mmHg BP Diastolic Sitting 80 mmHg Respiratory Rate 16 /min Pain Level 8 BMI (Body Mass Index) 29.6 kg/m2 02/24/2015 Heart Rate 78 /min BP Systolic Sitting 128 mmHg BP Diastolic Sitting 80 mmHg 12/30/2014 Heart Rate 76 /min BP Systolic Sitting 116 mmHg BP Diastolic Sitting 72 mmHg 12/16/2014 Heart Rate 84 /min BP Systolic Sitting 118 mmHg BP Diastolic Sitting 78 mmHg 11/04/2014 Height 63 inches 5'3" Weight 180.00 lb Heart Rate 80 /min BP Systolic Sitting 126 mmHg BP Diastolic Sitting 82 mmHg BMI (Body Mass Index) 31.9 kg/m2 Results Test Date Test Result H/L Range Note Laboratory test 12/18/2014 Surgical Pathology SEE RESULT BELOW 1 finding 1 SEE RESULT BELOW Name: DORYS PELAEZ : [address]: Nathalia Burrell MD Acct: [id number] Unit: [id number] AGE: 24 Location: [facility] Re12/18/14 SEX: F Status: REG SDC SPEC: [id number] ESTHELA: 12/18/14-[address] [facility] [address]: Nathalia Burrell MD REQ: [id number] RECD: 12/18/14 STATUS: SOUT _ ORDERED: LEVEL III FINAL DIAGNOSIS Soft tissue, right wrist, excision: -- Ganglion cyst. PRE-OPERATIVE DIAGNOSIS Ganglion joint right wrist GROSS DESCRIPTION The specimen is received in formalin labeled, Ganglion Cyst Right Wrist, and consists of two diane-white rubbery irregular focally cystic soft tissue fragments measuring 0.8 x 0.6 x 0.4 cm and 1.1 x 0.6 x 0.4 cm, which are submitted entirely in one cassette. Signed (signature on file) Eloy Arrington MD [id number] END OF REPORT * ML=Testing performed at Main Lab DEPARTMENT OF PATHOLOGY, [address] [place] [address] Eloy Arrington M.D. Director [facility] # [id number] Procedures Date CPT Code Description Status 12/18/2014 20848 Excision Ganglion Wrist/ Dorsal Or Volar; Primary Completed 11/04/2014 37355 Rad Exam; Hand Comp Completed 11/04/2014 00968 Rad Exam; Hand Comp Completed Encounters Type Date Location Provider CPT E/M Dx Office Visit 12/16/2014 [facility]opedic [facility] Nathalia Burrell, [phone] 8:30a Of [facility] Office Visit 11/04/2014 [facility] Nathalia Burrell, [id number] [phone] 10:45a [facility] [phone] Office Visit 09/24/2013 11:07a [facility] Arden Ugarte, 17940 [phone] Hospitalists Jaquan [phone] Plan of Care Future Appointment(s):11/23/2017 11:00 am - Akshat Salgado MD at [facility]/2018 - Akshat Salgado, MDS80.02xA Contusion of left knee, initial encounterNew Medication:Cyclobenzaprine HCL 10 mgNew Therapy: Physical TherapyFollow up:Follow up: 3 weeks
[2017-11-03 11:33] VITALS: BP 121/62
--- NOTE | 2017-11-03 12:22 | UC ---
Lower Extremity/Ankle HPI - HPI Summary HPI Summary: pt states she had a knee injury. she f/u with Dr Salgado([facility] orth) yesterday and was given crutches and flexeril. last pm she states she fell on the knee again down 4 steps. she is c/o more pain in the knee. she notes it is "the bubble " behind the knee that hurts. pt offers she had an US in the ER and was told that area is not a Bakers cyst. pt offers that Dr Salgado did not feel it was a Bakers cyst. Denies any other injuries. no calf pain/swelling. Pt is requesting additonal pain medications. - History of Current Complaint Chief Complaint: UCLowerExtremity Stated Complaint: LEFT KNEE PAIN Time Seen by Provider: 11/03/17 12:12 Hx Obtained From: Patient Hx Last Menstrual Period: 11/02/17 Onset/Duration: Sudden Onset Pain Intensity: 8 Alleviating Factor(s): Nothing Able to Bear Weight: Yes - Risk Factors Septic Arthritis Risk Factor: Negative - Allergies/Home Medications Allergies/Adverse Reactions: Allergies Allergy/AdvReac Type Severity Reaction Status Date / Time ibuprofen Allergy See Comment Verified 10/28/17 13:28 codeine AdvReac See Comment Verified 11/03/17 11:34 morphine AdvReac Itching Verified 11/03/17 11:34 tramadol AdvReac See Comment Verified 11/03/17 11:34 Home Medications: Home Medications Acetaminophen [APAP] 975 mg PO ONCE PRN 11/03/17 [History Confirmed 11/03/17] Cyclobenzaprine TAB* [Flexeril 10 MG TAB*] 10 mg PO TID PRN 11/03/17 [History Confirmed 11/03/17] Oxycodone HCl 5 mg PO Q8H MDD 3 11/03/17 [History Confirmed 11/03/17] PMH/Surg Hx/FS Hx/Imm Hx - Additional Past Medical History Additional PMH: kidney stones - Surgical History Surgical History: Yes Surgery Procedure, Year, and Place: gastric bypass 01/20/2013, right ganglion cyst 11/2014. GALLBLADDER REMOVED AT AGE 18. INFECTION IN FOOT -HAD DRAIN FOR- AT AGE 10 OR 11. TONSILLECTOMY - Family History Known Family History: Positive: Cardiac Disease, Other - Renal Calculi - Social History Lives: With Family Alcohol Use: None Substance Use Type: None Smoking Status (MU): Heavy Every Day Tobacco Smoker Type: Cigarettes Amount Used/How Often: 1/2 ppd Length of Time of Smoking/Using Tobacco: pt states she started 3 mos ago Have You Smoked in the Last Year: Yes - Immunization History Most Recent Influenza Vaccination: 2016 Most Recent Tetanus Shot: 2011 Most Recent Pneumonia Vaccination: NONE Vaccination Up to Date: Yes Review of Systems Constitutional: Negative Skin: Negative Eyes: Negative ENT: Negative Respiratory: Negative Cardiovascular: Negative Gastrointestinal: Negative Genitourinary: Negative Motor: Negative Neurovascular: Negative Musculoskeletal: Other: - pain back of left knee Neurological: Negative Psychological: Negative Is Patient Immunocompromised?: No All Other Systems Reviewed And Are Negative: Yes Physical Exam Triage Information Reviewed: Yes Appearance: Well-Appearing Vital Signs: Initial Vital Signs Temp 97.8 F 11/03/17 11:22 Pulse 87 11/03/17 11:22 Resp 16 11/03/17 11:22 BP 121/62 11/03/17 11:22 Pulse Ox 100 11/03/17 11:22 Vital Signs Reviewed: Yes Eyes: Positive: Conjunctiva Clear ENT: Positive: Normal ENT inspection Neck: Positive: Supple, Nontender, No Lymphadenopathy Respiratory: Positive: Lungs clear, Normal breath sounds Cardiovascular: Positive: RRR, No Murmur Abdomen Description: Positive: Nontender, No Organomegaly, Soft Bowel Sounds: Positive: Present Musculoskeletal: Positive: Other: - LLE: bare for exam and compared to RLE. no gross deformity, swelling or discoloration. pt notes posterior knee tenderness. No gross laxity. s/v/m is intact. 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 she has an allergy to motrin. list or allergies noted. [facility] utilization accessed and pt has obtained various narcotics from multiple providers in 2018 alone. the last 2 were on 10/23/17 and 10/28/17. there is no fx , joint laxity. there is no indication for narcotic pain medication. pt to resume her crutches, flexeril and tylenol. - Differential Dx/Diagnosis Provider Diagnoses: L knee pain Discharge - Sign-Out/Discharge Documenting (check all that apply): Discharge - Discharge Plan Condition: Stable Disposition: HOME Patient Education Materials: Knee Pain (ED) Referrals: Edgar VALENCIA,Cristian Huynh [Primary Care Provider] - If Needed Akhsat Salgado MD [Medical Doctor] - 7 Days Additional Instructions: CONTINUE YOUR CRUTCHES, TYLENOL AND FLEXERIL. - Billing Disposition and Condition Condition: STABLE Disposition: HOME
--- NOTE | 2017-11-03 13:09 | RAD ---
INDICATION: Left knee injury. COMPARISON: Comparison is made with a prior x-ray study of the left knee from November 02, 2017. TECHNIQUE: 4 views of the left knee were obtained. FINDINGS: The bones are in normal alignment. No joint effusion or fracture is seen. Joint spaces appear maintained. IMPRESSION: NO EVIDENCE FOR FRACTURE.
== END 2017-11-03 13:23 | disposition home or self-care (01) ==
LOC: UCCORT 09:59
DX: M25.562 Pain in left knee (principal); W10.9XXA Fall (on) (from) unspecified stairs and steps, initial encounter; Y93.9 Activity, unspecified; Y92.9 Unspecified place or not applicable; Z88.6 Allergy status to analgesic agent; Z88.5 Allergy status to narcotic agent; F17.210 Nicotine dependence, cigarettes, uncomplicated
CPT/HCPCS: 99211; G0463